=== PATIENT | male | born 1965 | race Caucasian/White ===

== ENCOUNTER 2018-05-20 07:27 | Day surgery (SDC) | payer OTHER ==
[2018-05-20] MEDS ORDERED: FENTAnyl 50 MCG/ML VIAL (09:32)
[2018-05-20] MEDS ORDERED: MIDAZOLAM 1 MG/ML 2 ML INJ ×2 (09:32)
== END 2018-05-20 13:35 | disposition home or self-care (01) ==
LOC: GIL 07:27
DX: Z12.11 Encounter for screening for malignant neoplasm of colon (principal); D12.0 Benign neoplasm of cecum; D12.3 Benign neoplasm of transverse colon; K62.1 Rectal polyp; E11.9 Type 2 diabetes mellitus without complications
CPT/HCPCS: 45380; 88305